=== PATIENT | female | born 1980 | race Two or more races ===

== ENCOUNTER 2020-03-05 10:17 | Outpatient (CLI) | payer OTHER ==
[~2020-03-05] VITALS: Ht 152.4 cm; Wt 58.1 kg
[2020-03-05] MEDS ORDERED: METFORMIN HCL500 M3 (10:38)
== END 2020-03-05 16:32 | disposition home or self-care (01) ==
LOC: OFIC 805 10:17
PROVIDERS: ATTEND Otolaryngology Otology & Neurotology
DX: H92.02 Otalgia, left ear (principal); J06.9 Acute upper respiratory infection, unspecified

== ENCOUNTER 2020-09-21 10:16 | Outpatient (CLI) | payer OTHER ==
[~2020-09-21 10:16] MED LIST: METFORMIN HCL500 M3
== END 2020-09-21 10:55 | disposition home or self-care (01) ==
LOC: RAD 10:16
PROVIDERS: ATTEND Obstetrics & Gynecology
DX: Z12.31 Encounter for screening mammogram for malignant neoplasm of breast (principal); N60.11 Diffuse cystic mastopathy of right breast

== ENCOUNTER 2020-11-01 17:26 | Emergency (ER) | payer OTHER ==
[~2020-11-01] VITALS: Ht 152.4 cm; Wt 59.9 kg
[2020-11-01] MEDS ORDERED: ZYRTEC10 MG PO (21:49)
[2020-11-01] MEDS ORDERED: MUCINEX DM ER1 EAC1 PO (21:49)
[2020-11-01] MEDS ORDERED: NAPROXEN375 MG PO (21:53)
== END 2020-11-01 22:17 | disposition home or self-care (01) ==
LOC: ER 17:26
DX: J06.9 Acute upper respiratory infection, unspecified (principal); D50.9 Iron deficiency anemia, unspecified